=== PATIENT | male | born 1975 | race Caucasian/White ===

== ENCOUNTER 2019-12-31 08:59 | Emergency (ER) | payer OTHER, SELFPAY ==
[2019-12-31 09:01] VITALS: BP 184/91; PULSE 74; RESP 17; TEMP 36.4; O2SAT 99; BMI 28.3
--- NOTE | 2019-12-31 09:12 | ED.VIS.GEN ---
History of Present Illness Chief Complaint: Bite Narrative: Patient is a 44-year-old male who presents with a dog bite. He was playing with a dog and the dog went to re-learning facilitator a rope while they are playing tug of war but accidentally bit his left ring finger. Patient has about a 1 cm wound to the left ring finger. He states he is just here because last time he was bit by dog he had a complicated infection and he wanted to prevent this. Past Medical History - Allergies and Home Meds Allergies/Adverse Reactions: Allergies No Known Allergies Allergy (Verified 12/31/19 09:00) Primary Care Physician: Jean-Pierre Rascon,Out of [Primary Care Provider] - Past Medical History: - - Hyperlipidemia Smoking Status: Never smoker Review of Systems All systems negative except as indicated General: Denies: Fever Cardiovascular: Denies: Chest pain Respiratory: Denies: Dyspnea Gastrointestinal: Denies: Vomiting Skin: Reports: Wounds Physical Exam Vital Signs/Narrative: Vital Signs Temp Pulse Resp BP Pulse Ox 12/31/19 09:01 97.5 F L 74 17 184/91 H 99 Inital Vital Signs reviewed: Yes General: Well nourished Head: Normocephalic Eyes: EOMI ENT: Moist mucous membranes Cardiovascular: Regular rate Respiratory: No distress Extremities: - - Patient has a 1 cm laceration of the left ring finger on the volar side overlying the middle phalanx no active bleeding this is not gaping Skin: Normal color Neurological: Alert Diagnostic/Tx/Re-eval - Medical Decision Making Given that this is a dog bite the wound will be left open not sutured. We will start the patient on prophylactic Augmentin. Patient ready cleanse this prior to presentation with soap water and hydrogen peroxide. Will apply dressing. Additionally we did update the patient's tetanus immunization. ED Disposition - Plan for ED Patient: Disposition: Home or Assisted Living Diagnosis: Dog bite of finger Instructions: ED BITE Dog Prescriptions: Amox/Clavulanate Tablet [Augmentin Tablet] 875 mg PO Q12H #20 tab Prescription Printed Referrals: Jean-Pierre RasconOut of [Primary Care Provider] -
[2019-12-31] MEDS: Amox/Clavulanate 875 MG Tablet PO (09:22)
[2019-12-31] MEDS: Diphth,Pertuss(Acell),Tet Vac 0.5 ML Vial IM (09:22)
== END 2019-12-31 09:50 | disposition home or self-care (01) ==
LOC: ED 09:46
PROVIDERS: Emergency Provider Emergency Medicine
DX: S60.475A Other superficial bite of left ring finger, initial encounter (principal); W54.0XXA Bitten by dog, initial encounter; Y93.9 Activity, unspecified; Y92.9 Unspecified place or not applicable; E78.5 Hyperlipidemia, unspecified; Z79.899 Other long term (current) drug therapy
CPT/HCPCS: 90471; 90715; 99283